=== PATIENT | male | born 1955 | race Caucasian/White ===

== ENCOUNTER 2017-01-20 16:45 | Inpatient (IN) | payer OTHER, MEDICAID ==
[~2017-01-20] VITALS: Ht 170.2 cm; Wt 129.7 kg
[2017-01-20 17:59] LABS: BASOPHIL % 0.7 % (0-2); CALCIUM 8.9 mg/dL (8.5-10.1); CARBON DIOXIDE 33.6 mmol/L (21-32); CHLORIDE SERUM 104 mmol/L (98-107); CREATININE SERUM 1.2 mg/dL (0.7-1.3); GFR1 > 60 mL/min; GLUCOSE SERUM 205 mg/dL (74-106); PLATELET COUNT 144 x10^3mcL (130-400); RED CELL DISTRIBUTION WIDTH 14.1 % (11.5-14.5); SODIUM SERUM 141 mmol/L (136-145)
[2017-01-20 18:04] LABS: ALKALINE PHOSPHATASE 148 U/L (46-116); ALT/SGPT 22 U/L (16-63); AST/SGOT 30 U/L (15-37); BILIRUBIN TOTAL 0.5 mg/dL (0.20-1.00); TOTAL PROTEIN, SERUM 6.5 g/dL (6.4-8.2)
[2017-01-20 18:11] LABS: ALBUMIN 2.3 g/dL (3.4-5.0)
[2017-01-20 20:51] VITALS: BP 158/85
[2017-01-20 21:15] VITALS: Ht 170.2 cm; Wt 129.7 kg
[2017-01-20 21:30] LABS: CHOLESTEROL/HDL RATIO 4.1; MAGNESIUM 1.8 mg/dL (1.8-2.4); PHOSPHOROUS 3.5 mg/dL (2.5-4.9)
[2017-01-20 21:35] LABS: FREE T4 0.92 ng/dL (0.76-1.46); FREE THYROXINE INDEX 2.4 ug/dL (1.4-4.5); T4(THYROXINE) 7.7 ug/dL (4.7-13.3)
[2017-01-20 21:40] VITALS: BP 158/85
[2017-01-20 21:51] LABS: T3 TOTAL 1.48 ng/mL
[2017-01-20] MEDS ORDERED: METFORMIN HCL1000 MG PO (23:26)
[2017-01-20] MEDS ORDERED: ASPIR 8181 MG PO (23:27)
[2017-01-20] MEDS ORDERED: CARVEDILOL3.125 M1 PO (23:27)
[2017-01-20] MEDS ORDERED: JANUVIA100 M1 PO (23:27)
[2017-01-20] MEDS ORDERED: ATORVASTATIN CA40 M1 PO (23:27)
[2017-01-20] MEDS ORDERED: LANTUS SOLOS100 U/M1 SQ (23:28)
[2017-01-20 23:42] VITALS: BP 158/85
[2017-01-21 05:33] LABS: microscopic required? YES; urine erythrocyte 1+ (NEGATIVE)
[2017-01-21 05:42] LABS: AMPHETAMINE QUAL UR NONE DETECTED (NEG <=1000)
[2017-01-21 05:43] VITALS: BP 149/83
[2017-01-21 06:18] LABS: CALCIUM 8.6 mg/dL (8.5-10.1); CARBON DIOXIDE 28.8 mmol/L (21-32); CHLORIDE SERUM 106 mmol/L (98-107); GFR1 > 60 mL/min; GLUCOSE SERUM 181 mg/dL (74-106); POTASSIUM SERUM 3.8 mmol/L (3.5-5.1); SODIUM SERUM 143 mmol/L (136-145)
[2017-01-21 06:23] LABS: BASOPHIL % 0.6 % (0-2); PLATELET COUNT 133 x10^3mcL (130-400); RED CELL DISTRIBUTION WIDTH 14.3 % (11.5-14.5)
[2017-01-21 10:00] VITALS: BP 125/66
[2017-01-21 11:26] LABS: RED BLOOD CELLS 4.03 M/mm3 (4.52-5.90)
[2017-01-21 11:44] LABS: IRON 54 ug/dL (65-170); TOTAL IRON BINDING CAPACITY 318 ug/dL (250-450)
[2017-01-21 14:01] VITALS: BP 143/75
[2017-01-21 16:35] VITALS: BP 140/71
[2017-01-21 19:45] VITALS: BP 192/94
[2017-01-21 22:45] VITALS: BP 133/64
[2017-01-22 05:47] VITALS: BP 143/82
[2017-01-22 06:42] LABS: BASOPHIL % 0.6 % (0-2); PLATELET COUNT 134 x10^3mcL (130-400); RED CELL DISTRIBUTION WIDTH 13.8 % (11.5-14.5)
[2017-01-22 06:52] LABS: CALCIUM 8.8 mg/dL (8.5-10.1); CARBON DIOXIDE 30.4 mmol/L (21-32); CHLORIDE SERUM 107 mmol/L (98-107); GFR1 > 60 mL/min; GLUCOSE SERUM 146 mg/dL (74-106); POTASSIUM SERUM 3.8 mmol/L (3.5-5.1); SODIUM SERUM 142 mmol/L (136-145)
[2017-01-22] MEDS ORDERED: ZITHROMAX500 MG PO (09:04)
[2017-01-22] MEDS ORDERED: ACIDOPHILUS LA1 EACH PO (09:05)
[2017-01-22] MEDS ORDERED: FERROUS SULFAT325 M2 PO (09:06)
[2017-01-22] MEDS ORDERED: VITAMIN C100 M2 PO (09:06)
[2017-01-22 10:10] VITALS: BP 145/73
[2017-01-22 13:39] VITALS: BP 145/73
[2017-01-22 13:53] VITALS: BP 141/75
== END 2017-01-22 14:45 | disposition home or self-care (01) | DRG 193 ==
LOC: ED 16:45 → DU 19:34
PROVIDERS: Emergency Medicine; Family Medicine; ADMIT Family Medicine
DX: J18.9 Pneumonia, unspecified organism (principal); J96.01 Acute respiratory failure with hypoxia; E43 Unspecified severe protein-calorie malnutrition; N17.0 Acute kidney failure with tubular necrosis; Z68.41 Body mass index [BMI] 40.0-44.9, adult; E11.65 Type 2 diabetes mellitus with hyperglycemia; E11.59 Type 2 diabetes mellitus with other circulatory complications; N20.0 Calculus of kidney; I10 Essential (primary) hypertension; B18.2 Chronic viral hepatitis C; D64.9 Anemia, unspecified; I25.10 Atherosclerotic heart disease of native coronary artery without angina pectoris; I25.2 Old myocardial infarction; Z95.1 Presence of aortocoronary bypass graft; Z87.891 Personal history of nicotine dependence; Z79.82 Long term (current) use of aspirin; Z79.4 Long term (current) use of insulin; Z79.84 Long term (current) use of oral hypoglycemic drugs; Z89.421 Acquired absence of other right toe(s)
CPT/HCPCS: 36600; 83880; 84439; 94150; J0360; J0696; J1815; J7030; J7613; J7620; Q0092; Q9967

== ENCOUNTER 2017-07-29 00:17 | Emergency (ER) | payer OTHER, MEDICAID ==
[~2017-07-29 00:17] MED LIST: ACIDOPHILUS LA1 EACH PO; ASPIR 8181 MG PO; ATORVASTATIN CA40 M1 PO; CARVEDILOL3.125 M1 PO; FERROUS SULFAT325 M2 PO; JANUVIA100 M1 PO; LANTUS SOLOS100 U/M1 SQ; METFORMIN HCL1000 MG PO; VITAMIN C100 M2 PO; ZITHROMAX500 MG PO
[2017-07-29 01:44] VITALS: BP 161/75
== END 2017-07-29 01:44 | disposition home or self-care (01) ==
LOC: ED 00:17
DX: J20.9 Acute bronchitis, unspecified (principal); I10 Essential (primary) hypertension; E11.9 Type 2 diabetes mellitus without complications; E78.00 Pure hypercholesterolemia, unspecified; Z95.1 Presence of aortocoronary bypass graft
CPT/HCPCS: J7512; J7620; Q0092

== ENCOUNTER 2017-08-07 20:39 | Observation (INO) | payer OTHER, MEDICAID ==
[~2017-08-07] VITALS: Ht 170.2 cm; Wt 128.1 kg
--- NOTE | 2017-08-07 21:00 | NUR ---
PT HAS LABORED BREATHING FOR A WEEK. SEEN AND GIVEN ABX FOR URI. PT PLACED ON O2 AND MONITOR. WILL CONTINUE TO MONITOR CLOSELY.
[2017-08-07 21:33] LABS: BASOPHIL % 0.3 % (0-2); PLATELET COUNT 132 x10^3mcL (130-400); RED CELL DISTRIBUTION WIDTH 14.4 % (11.5-14.5)
[2017-08-07 21:41] LABS: CALCIUM 8.6 mg/dL (8.5-10.1); CARBON DIOXIDE 31.2 mmol/L (21-32); CHLORIDE SERUM 108 mmol/L (98-107); CREATININE SERUM 1.1 mg/dL (0.7-1.3); GFR1 > 60 mL/min; GLUCOSE SERUM 153 mg/dL (74-106); POTASSIUM SERUM 3.6 mmol/L (3.5-5.1); SODIUM SERUM 142 mmol/L (136-145)
[2017-08-07 21:45] LABS: ALKALINE PHOSPHATASE 149 U/L (46-116); ALT/SGPT 38 U/L (16-63); AST/SGOT 34 U/L (15-37)
[2017-08-07 21:46] LABS: ALBUMIN 2.3 g/dL (3.4-5.0)
--- NOTE | 2017-08-07 21:48 | NUR ---
PT STATED THAT MEDICATION MADE THE PAIN GO AWAY, VS WNL, NOT IN ACUTE DISTRESS.
--- NOTE | 2017-08-07 22:20 | NUR ---
RT AT BEDSIDE, TREATMENT IN PROGRESS
--- NOTE | 2017-08-07 22:25 | NUR ---
PT FINISHED BREATHING TREATMENT AND STATED HE IS FEELING MUCH BETTER, BREATH SOUNDS ARE CLEAR LANA AND BREATHING IS NO LONGER LABORED.
--- NOTE | 2017-08-07 23:04 | NUR ---
PT RESTING ON STRETCHER, SAYS HE IS FEELING MUCH BETTER. VS WNL
[2017-08-08] VITALS (8 sets, daily range): BP systolic 112–160; BP diastolic 61–86
--- NOTE | 2017-08-08 00:06 | NUR ---
PT VS WNL, SON AT BEDSIDE. NO ACUTE DISTRESS
--- NOTE | 2017-08-08 00:21 | NUR ---
REPORT CALLED TO SHAAN ONEILL, REPORT TAKEN.
[2017-08-08 00:37] LABS: T3 TOTAL 1.21 ng/mL
[2017-08-08 00:41] LABS: CHOLESTEROL/HDL RATIO 2.7; MAGNESIUM 1.9 mg/dL (1.8-2.4); PHOSPHOROUS 4.3 mg/dL (2.5-4.9)
[2017-08-08 00:42] LABS: FREE T4 0.95 ng/dL (0.76-1.46); FREE THYROXINE INDEX 2.5 ug/dL (1.4-4.5); T4(THYROXINE) 7.7 ug/dL (4.7-13.3)
[2017-08-08 00:48] LABS: UA SPECIFIC GRAVITY >=1.030 (1.005-1.035); microscopic required? YES; urine erythrocyte 2+ (NEGATIVE)
--- NOTE | 2017-08-08 00:56 | NUR ---
RECEIVED PATIENT FROM ED VIA GUERNEY, PATIENT ALERT AND ORIENTED FRIENDS AT BEDSIDE, IV ACCESS TO RAC WNL, TELE # 11 SR, NO C/O PAIN AT THIS TIME, ORIENTED PATIENT TO ROOM AND SURROUNDINGS, BED IN LOW POSITION, BED RAILS UP X 2, CALL LIGHT WITHIN REACH, WILL ENDORSE CARE TO PRIMARY NURSE SHAAN Goddard RN
[2017-08-08 01:09] LABS: AMPHETAMINE QUAL UR NONE DETECTED (NEG <=1000)
--- NOTE | 2017-08-08 05:00 | NUR ---
IVF RATE CHANGED TO 10 CC/HR ORDERED.
--- NOTE | 2017-08-08 05:19 | NUR ---
PT APPEARS TO BE SLEEPING COMFORTABLY. NO SOB NOTED AT THIS TIME. PT SATTING 93% ON RA. HE HAD NO C/O PAIN. IVF INFUSING AT 10 CC/HR ORDERED.
[2017-08-08 07:05] LABS: CALCIUM 8.5 mg/dL (8.5-10.1); CARBON DIOXIDE 31.7 mmol/L (21-32); CHLORIDE SERUM 109 mmol/L (98-107); CREATININE SERUM 1.2 mg/dL (0.7-1.3); GFR1 > 60 mL/min; GLUCOSE SERUM 147 mg/dL (74-106); MAGNESIUM 1.9 mg/dL (1.8-2.4); POTASSIUM SERUM 3.5 mmol/L (3.5-5.1); SODIUM SERUM 145 mmol/L (136-145)
[2017-08-08 07:11] LABS: BASOPHIL % 0.5 % (0-2); RED CELL DISTRIBUTION WIDTH 14.3 % (11.5-14.5)
[2017-08-08 07:24] LABS: PLATELET COUNT 126 x10^3mcL (130-400)
--- NOTE | 2017-08-08 09:08 | NUR ---
Patient received alert and oriented times four. Patient with edema of 3 plus to the lower extremties and discoloration noted. 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 Patient denies chest pain but has a wet cough and fine rales are not productive at this time. Vitals at this time at97.4, 74, 20, 137/72, 95% on room air. Patient on lasix ivp and will give dosing at 900am. At this time patient is have ultrasound of the lower extremities and the kidney and bladder. Last blood sugar was at 182 and patient areceived 3 units of regular as ordered. Noted labs are Plt Count at 126, Ua with protien, blood and A1C at 7.9. Alk Phos at 149 and chest x ray at mild pulmonary vasular congestion. Hx of VT, HTN, Hep C, Pituatary Tumor, VT and stent placement and with HX of [place]. Patient tolerated diet adn an on strict I and O. Will continue to monitor as indiciated.
--- NOTE | 2017-08-08 09:23 | NUR ---
FAMILY AT BEDSIDE AND HAS QUESTIONS ABOUT PATIENT AND PLAN OF CARE. WENT OVER WITH THE PATIENT PERMISSION AND ADVISED THE DOCTORS WILL BE MAKING ROUNDS AND GO FURTHER INTO THE PLAN OF CARE.
--- NOTE | 2017-08-08 10:15 | NUR ---
SEEN BY DR GOVEA AND STAFF AND PLAN OF CARE DISCUSSED. PATIENT ADVISED OF COUGH AND PATIENT WAS GIVEN HIS LASIX IVP AND WILL MONITOR FOR RELIEF OF THE CHEST CONGESTION AND ANKLE SWELLING.
--- NOTE | 2017-08-08 15:51 | NUR ---
PATIENT RESTING WITH PERIODIC COUGH THAT SOUNDS WET BUT SO FAR HAS NOT BEEN PRODUCTIVE. ENCOURAGE DEEP BREATHING INDICATED.
--- NOTE | 2017-08-08 17:08 | NUR ---
STILL WITH UNPRODUCTIVE COUGH BUT IS SOUNDING LOOSER AND EDEMA HAS REDUCED MINIMALY. PATIENT DENIES PAIN AT THIS TIME. WILL CONTINUE TO MONITOR.
--- NOTE | 2017-08-08 19:20 | NUR ---
RECEIVED PT IN BED AWAKE AND TALKING TO A VISITOR. HE IS ALERT,ORIENTED X4 W/ CLEAR SPEECH. LUNG SOUNDS DIMINISHED. PT STATED HE HAS DRY COUGH BUT NOW STARTING TO COME OUT. HE HAS NO C/O PAIN AT THIS TIME. EDEMA TO BLE SLIGHTLY IMPROVED. W/ HL TO RTAC INTACT. CALL LIGHT W/IN REACH.
--- NOTE | 2017-08-08 21:18 | NUR ---
PT MEDICATED W/ ROBITUSSIN FOR COUGH AND W/ CEPACOL LOZENGE FOR SORE THROAT.
--- NOTE | 2017-08-09 02:10 | NUR ---
IV TO RTAC LEAKING AND HURTING. IV REMOVED. STARTED NEW IV ON THE LTFA. PT TOLERATED PROCEDURE WELL.
--- NOTE | 2017-08-09 05:12 | NUR ---
PT SLEPT THROUGH THE NIGHT. HE REMAINS ALERT AND ORIENTED X4.NO EPISDOE OF RESP. DISTRESS. PT WAS MEDICATED FOR COUGH X1. HE IS ABLE TO AMBULATE W/ STEADY GAIT. HE HAD NO C/O PAIN. ALL NEEDS ATTENDED TO.
[2017-08-09 05:44] VITALS: BP 142/73
[2017-08-09 05:52] VITALS: BP 160/86
--- NOTE | 2017-08-09 05:52 | NUR ---
NITRO 0.4 MG SL GIVEN FOR MW=194/86 HR=80.
[2017-08-09 06:30] VITALS: BP 127/68
[2017-08-09 06:55] LABS: BASOPHIL % 0.6 % (0-2); RED CELL DISTRIBUTION WIDTH 14.5 % (11.5-14.5)
[2017-08-09 06:56] LABS: CALCIUM 8.9 mg/dL (8.5-10.1); CARBON DIOXIDE 32.6 mmol/L (21-32); CHLORIDE SERUM 107 mmol/L (98-107); CREATININE SERUM 1.1 mg/dL (0.7-1.3); GFR1 > 60 mL/min; GLUCOSE SERUM 107 mg/dL (74-106); MAGNESIUM 2.1 mg/dL (1.8-2.4); POTASSIUM SERUM 3.4 mmol/L (3.5-5.1); SODIUM SERUM 144 mmol/L (136-145)
[2017-08-09 06:57] LABS: PLATELET COUNT 122 x10^3mcL (130-400)
--- NOTE | 2017-08-09 07:42 | NUR ---
A+OX4, DENIES PAIN, NO RESPIRATORY DISTRESS NOTED, TELE 11, PULSES MODERATE AND EQUAL LANA, EDEMA +2 BLE, SCDS ON, LUNG SOUNDS DIMINISHED, TOLERATING RA, BOWEL SOUNDS ACTIVE, VOIDING, AMPUTATED TOES ON R FOOT, SALINE LOCKED RAC, SITE WNL, RBC 4.09, HGB 12.6, HCT 37, PLT 122, K 3.4, CO2 32.6, BUN 19.0.
--- NOTE | 2017-08-09 08:24 | NUR ---
PT RESTING IN BED, NO RESPIRATORY DISTRESS NOTED, DENIES PAIN. PT GIVEN TOWELS AND TOILETRIES TO WASH UP REQUESTED.
[2017-08-09 08:25] VITALS: BP 144/75
--- NOTE | 2017-08-09 10:01 | NUR ---
PT RESTING IN BED, NO RESPIRATORY DISTRESS NOTED, DENIES PAIN, TECH AT BEDSIDE FOR ECHO.
--- NOTE | 2017-08-09 12:15 | NUR ---
PT RESTING IN BED, NO RESPRIATORY DISTRESS NOTED, DENIES PAIN.
--- NOTE | 2017-08-09 12:29 | NUR ---
PT COMPLAINING OF COUGH, ROBITUSSIN GIVEN, DENIES PAIN.
--- NOTE | 2017-08-09 13:16 | NUR ---
PT RESTING IN BED, NO RESPRIATORY DISTRESS NOTED, DENIES PAIN.
[2017-08-09 14:00] VITALS: BP 120/72
[2017-08-09] MEDS ORDERED: LEVAQUIN500 M1 PO ×2 (14:05→19:29)
[2017-08-09] MEDS ORDERED: MEDDP PO ×2 (14:06→19:29)
[2017-08-09] MEDS ORDERED: TESSALON PERLE100 MG PO ×2 (14:07→19:29)
[2017-08-09] MEDS ORDERED: [UNRECOGNIZED DRUG - OTHER] PO ×2 (14:08→19:29)
[2017-08-09] MEDS ORDERED: PROVENTIL0.09 MG/A1 INH ×2 (14:11→19:29)
--- NOTE | 2017-08-09 14:20 | NUR ---
PT RESTING IN BED, NO RESPIRATORY DISTRESS NOTED, IN NO APPARANT PAIN.
[2017-08-09 14:33] VITALS: BP 144/75
--- NOTE | 2017-08-09 15:49 | NUR ---
PT RESTING IN BED, NO RESPIRATORY DISTRESS NOTED, DENIES PAIN.
--- NOTE | 2017-08-09 17:06 | NUR ---
GAVE PT DISCHARGE INSTRUCTIONS AND PT VERBALIZED UNDERSTANDING, IV REMOVED WITH CATHETER INTACT. TELE REMOVED AND RETURNED TO MT STATION. PT AWAITING FLOOR RUNNER.
--- NOTE | 2017-08-09 17:42 | NUR ---
PT OFF UNIT VIA WHEELCHAIR ESCORTED BY ORGANIZATIONAL PSYCHOLOGIST WITH ALL BELONGINGS.
== END 2017-08-09 17:38 | disposition home or self-care (01) | DRG 177 ==
LOC: ED 20:39 → DU 23:39
PROVIDERS: Emergency Medicine; ADMIT Student in an Organized Health Care Education/Training Program
DX: J69.0 Pneumonitis due to inhalation of food and vomit (principal); I50.43 Acute on chronic combined systolic (congestive) and diastolic (congestive) heart failure; N17.0 Acute kidney failure with tubular necrosis; E43 Unspecified severe protein-calorie malnutrition; J44.1 Chronic obstructive pulmonary disease with (acute) exacerbation; Z68.42 Body mass index [BMI] 45.0-49.9, adult; E86.0 Dehydration; R31.9 Hematuria, unspecified; E11.65 Type 2 diabetes mellitus with hyperglycemia; E11.51 Type 2 diabetes mellitus with diabetic peripheral angiopathy without gangrene; I12.9 Hypertensive chronic kidney disease with stage 1 through stage 4 chronic kidney disease, or unspecified chronic kidney disease; E11.22 Type 2 diabetes mellitus with diabetic chronic kidney disease; N18.9 Chronic kidney disease, unspecified; I25.2 Old myocardial infarction; E66.01 Morbid (severe) obesity due to excess calories; Z95.5 Presence of coronary angioplasty implant and graft; Z95.1 Presence of aortocoronary bypass graft; Z79.82 Long term (current) use of aspirin; Z79.4 Long term (current) use of insulin; Z87.891 Personal history of nicotine dependence
CPT/HCPCS: 36600; 82962; 83880; 84439; 94150; G0378; J1815; J1940; J3490; J7030; J7620; Q0092

== ENCOUNTER 2017-11-01 18:40 | Emergency (ER) | payer OTHER, MEDICAID ==
[~2017-11-01] VITALS: Ht 170.2 cm; Wt 128.4 kg
[~2017-11-01 18:40] MED LIST changes: +LEVAQUIN500 M1 PO; +MEDDP PO; +PROVENTIL0.09 MG/A1 INH; +TESSALON PERLE100 MG PO; +[UNRECOGNIZED DRUG - OTHER] PO
[2017-11-01 18:47] VITALS: Ht 170.2 cm; Wt 128.4 kg
[2017-11-01 23:05] VITALS: BP 129/81
== END 2017-11-01 23:05 | disposition home or self-care (01) ==
LOC: ED 18:40
DX: J40 Bronchitis, not specified as acute or chronic (principal); J06.9 Acute upper respiratory infection, unspecified; I10 Essential (primary) hypertension; E11.9 Type 2 diabetes mellitus without complications; Z79.4 Long term (current) use of insulin
CPT/HCPCS: 87804